=== PATIENT | female | born 1985 ===

== ENCOUNTER 2016-07-20 13:06 | Emergency (ER) | payer SELFPAY ==
[2016-07-20] MEDS ORDERED: NORMAL SALINE 1,000 ML IV ONE (13:37)
[2016-07-20] MEDS ORDERED: KETOROLAC TROMETHAMINE 30 MG/ML VIAL IV ONE (13:38)
[2016-07-20] MEDS ORDERED: ONDANSETRON HCL/PF 2 MG/ML VIAL IV ONE (13:38)
[2016-07-20 13:59] LABS: Hematocrit 41.1 % (37.0-47.0); Hemoglobin 13.5 gm/dL (12.5-16.0); Mean Cell Volume 86.5 fl (78-100); Mean Corpuscular Hemoglobin 28.4 pg (27-31); Mean Corpuscular Hgb Conc 32.8 g/dl (32-36); Mean Platelet Volume 10.4 fl (6.0-9.5); Neutrophil # 4.4 K/mm3 (1.3-6.0); Neutrophil % 58.4 % (42-75.0); Platelet Count 239 K/mm3 (150-450); Red Blood Count 4.75 M/mm3 (4.2-5.4); Red Cell Distribution Width 13.4 % (11.5-14.0); White Blood Count 7.6 K/mm3 (4.0-10.5)
[2016-07-20 14:11] LABS: Albumin * 3.9 gm/dl (3.4-5.0); Anion Gap 14.4 mmol/L (6.8-13.8); BUN/Creatinine Ratio 12.7 (9.0-21.6); Bilirubin, Total 0.2 mg/dL (0.0-1.1); Ca. Corrected For Albumin 8.5 mg/dL (8.4-10.2); Calcium * 8.7 mg/dL (7.9-10.9); Carbon Dioxide 27.9 mmol/L (24-32.6); Potassium 4.3 mmol/L (3.4-4.6); Total Protein 7.7 gm/dL (6.2-8.2)
[2016-07-20] MEDS ORDERED: ONDANSETRON HCL/PF 2 MG/ML VIAL ONE (14:15)
[2016-07-20] MEDS ORDERED: KETOROLAC TROMETHAMINE 30 MG/ML VIAL ONE (14:15)
[2016-07-20 14:31] LABS: Urine Appearance Clear; Urine Bilirubin Negative (NEGATIVE); Urine Blood Negative /ul (NEGATIVE); Urine Color Yellow; Urine Ketone Negative (NEGATIVE)
[2016-07-20 14:32] LABS: Urine Nitrite Negative (NEGATIVE); Urine Protein Negative (NEGATIVE); Urine RBC None Seen /hpf (0-5); Urine Specific Gravity 1.015 SP.GR. (1.005-1.010); Urine Urobilinogen Normal (NORMAL); Urine WBC 0-5 /hpf (0-5); Urine pH 7.5 pH (5.0-7.0)
[2016-07-20 14:34] LABS: Urine Bacteria None Seen
[2016-07-20] MEDS ORDERED: HYDROmorphone HCL 1 MG/ML DISP.SYRIN IV ONE (14:46)
[2016-07-20] MEDS ORDERED: PROMETHAZINE HCL 12.5 MG in DEXTROSE 5 % IN WATER 50 ML IV ONE ×2 (14:46)
[2016-07-20] MEDS ORDERED: HYDROmorphone HCL 1 MG/ML DISP.SYRIN ONE (14:51)
[2016-07-20 15:29] VITALS: BP 107/69
[2016-07-20] MEDS ORDERED: MAGNESIUM CITRATE 300 ML BTL PO ONE (16:01)
--- NOTE | 2016-07-20 16:01 | ERNOTE ---
Abdominal HPI - Narrative Date of Service: 07/20/16 - General Chief Complaint: Abdominal Pain Time Seen by Provider: 07/20/16 13:26 Source: patient Exam Limitations: no limitations - Immun/Allergies/Home Medications Immunizatons: IMMUNIZATION HX Immunizations Up to Date Yes History of Influenza Vaccine No Allergies/Adverse Reactions: Allergies adhesive tape Allergy (Verified 07/20/16 14:02) aspirin Allergy (Verified 07/20/16 14:02) ciprofloxacin [From Cipro] Allergy (Verified 07/20/16 14:02) codeine Allergy (Verified 07/20/16 14:02) morphine Allergy (Verified 07/20/16 14:02) nitrofurantoin [From Macrobid] Allergy (Verified 07/20/16 14:02) Home Medications: HOME MEDICATIONS Dicyclomine HCl [Bentyl] 20 mg PO TID PRN #20 tablet 07/20/16 [Last Taken Unknown] Ondansetron [Zofran Odt] 4 mg PO Q6H PRN #20 tab 07/20/16 [Last Taken Unknown] - Pain Score Pain Score #1 Pain Score: 10 Abdominal Pain Onset Location: RLQ Pain Radiation: no radiation Pain Score #2 Pain Score: 3 Abdominal Pain Onset Location: RLQ - History of Present Illness Narrative: Patient is a 30 year old female who presents to ED with complaints of RLQ pain, NVD worse since 0900 this am. Stated she noticed it yesterday about 1730, vomited once and felt better so went to work. States she awoke this morning 0915 with severe RLQ pain, vomited x 6 and diarrhea. Denies beging exposed to sick contacts, denies fever. States ate greasy foods last night. Has had multiple abdominal surgeries in past Timing: constant, getting worse Quality: severe, sharpness, stabbing Activities at Onset: sleep Modifying Factors - (Improves): Present: rest Modifying Factors - (Worsens): Present: sitting up, movement Associated Symptoms: Present: nausea, vomiting, loss of appetite Prior Abdominal Problems: Present: none Review of Systems - Review of Systems Constitutional: Present: no symptoms reported. Absent: fever, chills, weight loss EYE: Present: no symptoms reported ENT: Present: no symptoms reported Respiratory: Present: no symptoms reported. Absent: shortness of breath, cough Cardiology: Present: no symptoms reported. Absent: chest pain, palpitations Gastrointestinal/Abdominal: Present: nausea, vomiting, diarrhea, abdominal pain , eating less, drinking less Genitourinary: Present: no symptoms reported Musculoskeletal: Present: no symptoms reported Skin: Present: no symptoms reported. Absent: rash, dryness Neurological: Present: no symptoms reported Endocrine: Present: no symptoms reported Hematologic/Lymphatic: Present: no symptoms reported - Patient's Past Medical History Patient History - Medical: Obesity Patient History - Cardiac/Respiratory: No pertinent hx Patient History - Cancer: No Hx of Cancer Patient History - Surgical Procedures: Appendectomy, Cholecystectomy, , Hysterectomy - Social History Living Situations: home Psych History: No pertinent hx Smoking Status: Never smoker Alcohol Use: none Drug Use: none - Immunizations Immunizations Up to Date: Yes History of Influenza Vaccine: No Physical Exam - Physical Exam General Appearance: Present: wd/wn, alert, no apparent distress Eye Exam: Normal inspection: bilateral, PERRL: bilateral Ears, Nose, Throat: Present: normal ENT inspection. Absent: normal pharynx Neck: Present: normal inspection, nontender, supple, full range of motion. Absent: lymphadenopathy (R), lymphadenopathy (L) Respiratory: Present: no respiratory distress, normal breath sounds, no accessory muscle use, chest nontender, lungs clear Cardiovascular/Chest: Present: regular rate, rhythm, no murmur, normal peripheral pulses Peripheral Pulses: N=norm/S=strong/W=weak/B=bound/A=absent: Radial (R): Normal, Radial (L): Normal Gastrointestinal/Abdominal: Present: normal bowel sounds, nondistended, soft, no organomegaly, tenderness - RLQ Rectal Exam: Present: deferred Back Exam: Present: normal inspection, normal range of motion Extremity Exam: Present: normal inspection, non-tender, normal range of motion, no edema Neurological Exam: Present: alert, oriented, normal mood/affect, no motor/ sensory deficits Skin Exam: Present: normal color, warm/dry Lymphatic Exam: Present: no adenopathy ED Progress - Results and Orders Patient's Lab Results:: I have reviewed the patient's lab results. - Vital Signs Patient's Vital Signs:: I have reviewed the patient's vital signs. Vital Signs: Vital Signs 07/20/16 07/20/16 07/20/16 13:12 14:30 15:28 Temperature 36.6 C 37.0 C 37.0 C Pulse Rate 79 88 72 Respiratory 16 16 16 Rate Blood Pressure 119/77 140/72 107/69 O2 Sat by Pulse 98 99 97 Oximetry - X-Ray X-Ray #1 X-Ray: abdomen Interpretation: Reviewed by me X-ray Comments: No free air, non obstructed bowel, surgical clips RUQ - Progress/Reassessment Chief Complaint: Abdominal Pain Progress:: Improved Departure - Departure Clinical Impression: Abdominal pain Qualifiers: Abdominal location: right lower quadrant Qualified Code(s): R10.31 - Right lower quadrant pain Constipation Qualifiers: Constipation type: slow transit constipation Qualified Code(s): K59.01 - Slow transit constipation Nausea & vomiting Qualifiers: Vomiting type: unspecified Vomiting Intractability: unspecified Qualified Code( s): R11.2 - Nausea with vomiting, unspecified Disposition: Home self-care Condition: Good Instructions: Constipation, Adult, [id number], Nausea and Vomiting, Adult, [id number], Abdominal Pain, Adult, [id number] Additional Instructions: Take Magnesium citrate at home for constipation. Clear liquid diet today and advance to bland diet tomorrow. Avoid spicy, greasy/fried foods. Increase fiber in diet i.e raw vegetables, salads, bran cereal or add Miralax to avoid constipation Referrals: Abiodun Castro MD [Primary Care Provider] - Prescriptions: Dicyclomine HCl [Bentyl] 20 mg PO TID PRN #20 tablet PRN Reason: Pain Ondansetron [Zofran Odt] 4 mg PO Q6H PRN #20 tab PRN Reason: Nausea And Vomiting
[2016-07-20] MEDS ORDERED: MAGNESIUM CITRATE 300 ML BTL ONE (16:07)
== END 2016-07-20 16:09 | disposition home or self-care (01) ==
LOC: ER 13:06
DX: R10.31 Right lower quadrant pain (principal); K59.01 Slow transit constipation; R11.2 Nausea with vomiting, unspecified